=== PATIENT | female | born 1975 | race Caucasian/White ===

== ENCOUNTER 2020-04-29 10:14 | Outpatient (CLI) | payer OTHER, SELFPAY ==
--- NOTE | 2020-04-29 10:28 | XR_ITS ---
WS: [id number] HIP WITH PELVIS RIGHT TECHNIQUE: 3 views of the right hip with pelvis CLINICAL INFORMATION: HIP PAIN, RIGHT, CHRONIC COMPARISON: None. FINDINGS: Right hip is normal in appearance. No acute fractures. Pelvic phleboliths right hemipelvis. XR/XR hip RT 2-3V wo/w pel* [id number] IMPRESSION: Normal right hip
== END 2020-04-29 10:15 | disposition home or self-care (01) ==
LOC: RADWPI 10:21
PROVIDERS: PCP Electrodiagnostic Medicine; Visit Provider Electrodiagnostic Medicine
DX: M25.551 Pain in right hip (principal); G89.29 Other chronic pain
CPT/HCPCS: 73502

== ENCOUNTER 2024-02-10 11:09 | Outpatient (CLI) | payer OTHER, SELFPAY ==
--- NOTE | 2024-02-10 11:12 | MM_ITS ---
WS: [id number] SCREENING DIGITAL BREAST TOMOSYNTHESIS MAMMOGRAM WITH CAD HISTORY: SCREENING COMPARISON: 11/28/2018 Bilateral CC and MLO with tomosynthesis and synthetic mammography submitted. Computer aided detection analyzed. Breast composition: The breasts are extremely dense, which lowers the sensitivity of mammography. Ind eterminate and partially distorted calcifications are noted in the upper outer quadrant of the RIGHT breast. These calcifications were also present in 2019 and additional views are recommended. No addit ional views are available. Similar cluster of calcifications in the LEFT breast central to the nipple at a middle depth. Slight increase in number of calcifications. MM/MM scr tomosynthesis [id number] IMPRESSION: BI-RADS: 0 - Incomplete: Need additional imaging evaluation FOLLOW UP: Need Additional Imaging RIGHT AND LEFTS BREAST: Magnification views of suspicious calcification CC and MLO. True ML.
== END 2024-02-10 11:10 | disposition home or self-care (01) ==
LOC: RAD 11:10
PROVIDERS: PCP Electrodiagnostic Medicine; Visit Provider Electrodiagnostic Medicine
DX: Z12.31 Encounter for screening mammogram for malignant neoplasm of breast (principal); R92.333 Mammographic heterogeneous density, bilateral breasts; N64.89 Other specified disorders of breast
CPT/HCPCS: 77063; 77067

== ENCOUNTER 2025-02-12 08:59 | Outpatient (CLI) | payer OTHER, SELFPAY ==
--- NOTE | 2025-02-12 09:05 | MM_ITS ---
WS: [id number] ADDITIONAL VIEWS BILATERAL MAMMOGRAM WITH DIGITAL BREAST TOMOSYNTHESIS. HISTORY: Follow-up bilateral breast calcifications. COMPARISON: None available. Magnification views RIGHT and LEFT breasts in CC, MLO projections and true ML submitted with digital breast tomosynthesis and SM. Breast composition: The breasts are extremely dense, which lowers the sensitivity of mammography. Magnification views demonstrate calcifications bilaterally within each breast. These calcifications are more scattered with additional views. Some of these calcifications may be vascular. Majority of these calcifications have probably been present in the process but better seen today due to involution of the fibroglandular tissue. No biopsy at this time. MM/MM diag BI tomosynthesis [id number] IMPRESSION: BI-RADS: 3 - Probably Benign FOLLOW UP: 6 Month Follow-up Diagnostic mammogram in 6 months with magnification views of each breast.
== END 2025-02-12 09:00 | disposition home or self-care (01) ==
LOC: RAD 09:01
PROVIDERS: PCP Electrodiagnostic Medicine; Visit Provider Electrodiagnostic Medicine
DX: R92.8 Other abnormal and inconclusive findings on diagnostic imaging of breast (principal); R92.343 Mammographic extreme density, bilateral breasts; R92.1 Mammographic calcification found on diagnostic imaging of breast
CPT/HCPCS: 77062; G0279